=== PATIENT | male | born 1985 | race Caucasian/White ===

== ENCOUNTER 2016-07-06 17:06 | Emergency (ER) | payer OTHER ==
[2016-07-06 17:35] VITALS: BP 119/69
[2016-07-06] MEDS ORDERED: Naproxen TAB* 250 MG PO ONE (17:56)
[2016-07-06] MEDS ORDERED: Carisoprodol TAB* 350 MG PO ONE (18:52)
--- NOTE | 2016-07-06 19:00 | RAD ---
Indication: Back pain. 2 views of the lumbar spine demonstrates straightening of the normal lordosis. Disc spaces all well-preserved. Pedicles appear intact. IMPRESSION: Straightening of the normal lordosis without evidence of fracture.
--- NOTE | 2016-07-06 20:02 | RAD ---
Indication: Back pain. 2 views of the thoracic spine demonstrates mild dextroscoliosis centered at T9-T10. Otherwise the vertebral bodies appear normal in height. No fracture is identified. IMPRESSION: Mild dextroscoliosis is noted without fracture.
--- NOTE | 2016-07-06 23:27 | UC ---
Kyle Sutherland Aidan, scribed for Halina Aguilar MD on 07/06/16 at 1826 . Back Pain HPI - HPI Summary HPI Summary: 30 y/o male presents to the Urgent Care with a complaint of acute, constant back pain. Sudden onset, occurred while walking on grass. Pain middle back, lower thoracic /upper lumbar region. Fell to the ground with pain, stayed there approx an hourb b/c too painful to get up. Friendly passerby helped him to get here. No paresth / dysth. No focal weakness, but painful to move legs. No b/b leak. No rash. No GI sx. Denies hx back injury or previous back pain. No recent fever. No discolored urine. Pt is a student outreach coordinator (works primarily indoors) at [employer] - History of Current Complaint Chief Complaint: UCBackPain Stated Complaint: BACK PAIN Time Seen by Provider: 07/06/16 17:31 Hx Obtained From: Patient Onset/Duration: Sudden Onset, Lasting Hours, Still Present Timing: Constant, Lasting Hours Severity Initially: Moderate Severity Currently: Mild Pain Intensity: 3 Pain Scale Used: 0-10 Numeric Back Pain: Is Discrete @ - lower back Character: Aching Aggravating: Movement - and inhalation Alleviating: Nothing - unknown Associated Signs And Symptoms: Positive: Negative - Allergies/Home Medications Allergies/Adverse Reactions: Allergies Allergy/AdvReac Type Severity Reaction Status Date / Time No Known Allergies Allergy Verified 07/06/16 17:31 PMH/Surg Hx/FS Hx/Imm Hx Previously Healthy: Yes - Surgical History Surgical History: None - Family History Known Family History: Positive: Other - no benny - Social History Occupation: Student Lives: Alone Alcohol Use: None Substance Use Type: None Smoking Status (MU): Never Smoked Tobacco Review of Systems Constitutional: Negative Skin: Negative Eyes: Negative ENT: Negative Respiratory: Negative Cardiovascular: Negative Gastrointestinal: Negative Genitourinary: Negative Motor: Negative Neurovascular: Negative Musculoskeletal: Arthralgia - low back pain Neurological: Negative Psychological: Negative All Other Systems Reviewed And Are Negative: Yes Physical Exam Triage Information Reviewed: Yes Appearance: Well-Nourished, Pain Distress - pain with examination. Initial examination in wheelchair. After xrays, moved to bed. Vital Signs: Initial Vital Signs Temp 98.6 F 07/06/16 17:32 Pulse 64 07/06/16 17:32 Resp 16 07/06/16 17:32 BP 119/69 07/06/16 17:32 Pulse Ox 98 07/06/16 17:32 Vital Signs Reviewed: Yes Eye Exam: Normal ENT Exam: Normal Neck exam: Normal Respiratory Exam: Normal, Other - no dyspnea or tachypnea Respiratory: Positive: Chest non-tender, Lungs clear, Normal breath sounds, No respiratory distress Cardiovascular Exam: Normal Cardiovascular: Positive: RRR, No Murmur, Pulses Normal, Brisk Capillary Refill , Other: - heart rate regular, good general skin color Abdominal Exam: Normal Abdomen Description: Positive: Nontender, No Organomegaly, Soft Bowel Sounds: Positive: Present Musculoskeletal Exam: Normal Musculoskeletal: Positive: Strength Intact, Other: - Lower thoracic / upper lumbar region tender to pressure. + perispinal spasm and tenderness. No crepitus, no rash. No mario deformity. No cvat perse. Neurological Exam: Normal, Other - grossly intact, nonfocal Psychological Exam: Normal, Other - converses easily and appropriately Skin Exam: Normal, Other - no reported or seen rash Diagnostics - Radiology THORACIC SPINE X-RAY Xray Interpretation: No Acute Changes Radiology Interpretation Completed By: Radiologist LUMBAR SPINE X-RAY Xray Interpretation: No Acute Changes - IMPRESSION: Straightening of the normal lordosis without evidence of fracture. Back Pain Course/Dx - Course Course Of Treatment: Initially declined injection (ketorolac) or muscle relaxant. Did agree to naproxen po. However, pain progressively worsened while in [facility]. At 1910, the patient screamed in pain while on stretcher. Lumbar xray reviewed - reversal lordosis o/w nad. Thoracic spine report not available at transfer, but no acute issues noted by my review. Final report ( [facility]). Pain is progressively worse, w/o apparent traumatic or nontraumatic etiology. He is not able to stand up or walk. This requires urgent need further evaluation and management in the ED. He has agreed to be transfered to the ED for further evaluation and pain management via EMS. - Differential Dx/Diagnosis Provider Diagnoses: Severe sudden and progressively worse mid back pain - Physician Notifications Discussed Patient Care With: Flaquita (charge nurse in the ED) Time Discussed With Above Provider: 19:35 - Dr. Aguilar briefed Flaquita about the patient's case and prepped the ED for transfer. Discharge - Discharge Plan Condition: Fair Disposition: TRANS HIGHER LVL OF CARE FAC Referrals: No Primary Care Phys,NOPCP [Primary Care Provider] - The documentation as recorded by the Kyle cary Aidan accurately reflects the service I personally performed and the decisions made by me, Halina Aguilar MD.
== END 2016-07-06 19:50 | disposition short-term general hospital (02) ==
LOC: EDSEX → UCEAST 17:06
DX: M54.5 Low back pain (principal); M41.9 Scoliosis, unspecified
CPT/HCPCS: 72070; 72100; 99213; A9270-GY; G0463

== ENCOUNTER 2016-07-06 20:08 | Emergency (ER) | payer OTHER ==
[2016-07-06] MEDS ORDERED: Cyclobenzaprine TAB* 10 MG PO ONE (21:12)
[2016-07-06] MEDS ORDERED: Ketorolac INJ* 60 MG/2 ML VIAL IM ONE (21:12)
[2016-07-06 23:02] LABS: Urine Bilirubin Negative (Negative); Urine Glucose Negative (Negative); Urine Nitrite Negative (Negative)
--- NOTE | 2016-07-06 23:15 | ED ---
Back Pain - HPI Summary HPI Summary: Patient presents with back pain that began suddenly while walking at about 4pm today without injury. He laid down on the ground since it was linda out to see if his pain would decrease but when it didn't, his friends said he should be seen. He has never had pain like this before. He denies incontinence of urine or stool. No N/T, or inability to walk. - History of Current Complaint Chief Complaint: EDBackInjuryPain Stated Complaint: BACK PAIN Time Seen by Provider: 07/06/16 20:17 Hx Obtained From: Patient Onset/Duration: Sudden Onset Onset/Duration: Started Hours Ago Timing: Constant Back Pain Location: Is Discrete @ - low back Severity Initially: Moderate Severity Currently: Moderate Pain Intensity: 4 Character: Aching, Stiffness Aggravating Symptom(s): Movement Alleviating Symptom(s): Rest Associated Signs And Symptoms: Positive: Pain with Weight Bearing - Allergies/Home Medications Allergies/Adverse Reactions: Allergies Allergy/AdvReac Type Severity Reaction Status Date / Time No Known Allergies Allergy Verified 07/06/16 17:31 PMH/Surg Hx/FS Hx/Imm Hx Previously Healthy: Yes Infectious Disease History: Denies: History Other Infectious Disease, Traveled Outside the [place] in Last 30 Days - Family History Known Family History: Positive: None - Social History Occupation: Student Lives: Alone Alcohol Use: Daily Substance Use Type: Reports: None Smoking Status (MU): Never Smoked Tobacco Review of Systems Negative: Fever Negative: Chest Pain Negative: Shortness Of Breath Positive: Myalgia. Negative: Decreased ROM, Edema Negative: Weakness, Paresthesia, Numbness All Other Systems Reviewed And Are Negative: Yes Physical Exam Triage Information Reviewed: Yes Vital Signs On Initial Exam: Initial Vitals Temp Pulse Resp BP Pulse Ox 99.6 F 67 16 124/62 87 07/06/16 20:22 07/06/16 20:22 07/06/16 20:22 07/06/16 20:22 07/06/16 20:22 Vital Signs Reviewed: Yes Appearance: Positive: Well-Appearing, Well-Nourished, Pain Distress Skin: Positive: Warm, Skin Color Reflects Adequate Perfusion, Dry, Soft Head/Face: Positive: Normal Head/Face Inspection Eyes: Positive: EOMI, STAS, Conjunctiva Clear ENT: Positive: Hearing grossly normal Neck: Positive: Supple, Nontender Respiratory/Lung Sounds: Positive: Breath Sounds Present Cardiovascular: Positive: RRR Abdomen Description: Positive: Nontender, Soft Musculoskeletal: Positive: Limited @ - +right SLR, Pain @ - TTP left SI joint Neurological: Positive: Sensory/Motor Intact, Alert, Oriented to Person Place, Time, NV Bundle Intact Distally, Abnormal Gait Psychiatric: Positive: Affect/Mood Appropriate AVPU Assessment: Alert - [place] Coma Scale Coma Scale Total: 10 Diagnostics - Vital Signs Vital Signs Temp Pulse Resp BP Pulse Ox 07/06/16 20:22 99.3 F 73 14 124/62 98 - Laboratory Lab Results: Lab Results 07/06/16 Range/Units 22:50 Urine Color Yellow Urine Appearance Cloudy Urine pH 7.0 (5-9) Ur Specific [place] 1.015 (1.010-1.030) Urine Protein Negative (Negative) Urine Ketones 1+ H (Negative) Urine Blood Negative (Negative) Urine Nitrate Negative (Negative) Urine Bilirubin Negative (Negative) Urine Urobilinogen Negative (Negative) Ur Leukocyte Esterase Negative (Negative) Urine Glucose Negative (Negative) Lab Statement: Any lab studies that have been ordered have been reviewed, and results considered in the medical decision making process. Re-Evaluation - Re-Evaluation First Eval Re-Evaluation Time: 22:50 Change: Improved - pain improved with medication Back Pain Course/Dx - Diagnoses Differential Diagnosis/HQI/PQRI: Positive: Aneurysm, Cauda Equina Syndrome, Herniated Disc, Osteomyelitis, Strain, Sprain Provider Diagnoses: Low back pain Discharge - Discharge Plan Condition: Stable Disposition: HOME Prescriptions: Cyclobenzaprine TAB* [Flexeril 10 MG TAB*] 10 mg PO TID PRN #15 tab PRN Reason: Pain Patient Education Materials: Acute Low Back Pain (ED) Additional Instructions: Please use the medication prescribed for your muscle pain. Beginning tomorrow evening take ibuprofen 600mg three times daily with meals for the next 3-5 days. Apply moist heat to your back and rest for the next 2-3 days. Follow-up at [facility] if your symptoms do not begin to improve in the next 3-5 days. Return to the emergency department if symptoms worsen.
[2016-07-06 23:42] VITALS: BP 115/64
== END 2016-07-06 23:42 | disposition home or self-care (01) ==
LOC: ED 20:08
DX: M54.5 Low back pain (principal)
CPT/HCPCS: 81003; 99283; A9270-GY; J1885